=== PATIENT | male | born 1965 | race Caucasian/White ===

== ENCOUNTER 2017-12-13 07:12 | Emergency (ER) | payer MEDICAID ==
[~2017-12-13] VITALS: Ht 177.8 cm; Wt 85.0 kg
[~2017-12-13 07:12] MED LIST: DEPAKOTE; dilantin
[2017-12-13] MEDS ORDERED: LEVETIRACETAM 500MG PREMIX 100 ML IV ONE (08:00)
[2017-12-13 08:33] LABS: BASOPHILS % 0.6 % (0.0-2.0); EOSINOPHILS % 0.9 % (0.0-5.0); HEMATOCRIT. 43.4 % (42.0-52.0); HEMOGLOBIN. 14.7 g/dL (14.0-18.0); LYMPHOCYTES % 10.2 % (20.0-50.0); MEAN CORPUSCULAR HEMOGLOBIN 30.3 pg (28.0-32.0); MEAN CORPUSCULAR VOLUME 89.5 fL (80.0-94.0); MONOCYTES % 7.9 % (2.0-8.0); NEUTROPHILS % 80.4 % (40.0-76.0); PLATELET 287 x1000/uL (130-400); RED BLOOD CELL COUNT 4.85 mill/uL (4.7-6.1); RED CELL DISTRIBUTION WIDTH 14.1 % (11.6-14.6)
[2017-12-13] MEDS ORDERED: ONDANSETRON HCL 4MG/2ML VIAL IV ONE (09:00)
[2017-12-13 09:09] LABS: CHLORIDE 110 mEq/L (98-107)
[2017-12-13 13:22] VITALS: BP 136/69
== END 2017-12-13 13:40 | disposition home or self-care (01) ==
LOC: ER 07:12
DX: R56.9 Unspecified convulsions (principal)
CPT/HCPCS: 36415; 80053; 85025; 96365; 96375; 99284; J1953; J2405

== ENCOUNTER 2018-01-25 06:30 | Emergency (ER) | payer MEDICAID ==
[~2018-01-25] VITALS: Ht 188 cm; Wt 90.9 kg
[2018-01-25] MEDS ORDERED: SODIUM CHLORIDE 0.9% 1,000 ML IV ONE (06:48)
[2018-01-25] MEDS ORDERED: LORAZEPAM 2MG/ML CPJ IV ONE (07:00)
[2018-01-25 07:24] LABS: BASOPHILS % 1.1 % (0.0-2.0); EOSINOPHILS % 3.7 % (0.0-5.0); HEMATOCRIT. 41.2 % (42.0-52.0); LYMPHOCYTES % 32.6 % (20.0-50.0); MEAN CORPUSCULAR HEMOGLOBIN 30.7 pg (28.0-32.0); MEAN PLATELET VOLUME 7.5 fl (7.4-10.4); MONOCYTES % 10.1 % (2.0-8.0); NEUTROPHILS % 52.5 % (40.0-76.0); PLATELET 328 x1000/uL (130-400); RED BLOOD CELL COUNT 4.58 mill/uL (4.7-6.1); RED CELL DISTRIBUTION WIDTH 13.6 % (11.6-14.6)
[2018-01-25 07:31] LABS: CHLORIDE 111 mEq/L (98-107)
[2018-01-25 07:34] LABS: ETHANOL BLOOD < 10 mg/dL
[2018-01-25] MEDS ORDERED: VALPROIC ACID 250MG CAPSULE PO ONE (08:00)
[2018-01-25 08:54] VITALS: BP 125/89
== END 2018-01-25 08:59 | disposition left against medical advice (07) ==
LOC: ER 06:30
DX: G40.909 Epilepsy, unspecified, not intractable, without status epilepticus (principal); R03.0 Elevated blood-pressure reading, without diagnosis of hypertension
CPT/HCPCS: 36415; 80053; 80165; 82962; 84484; 85025; 93005; 96374; 99285; G0482; J2060; J7030

== ENCOUNTER 2019-07-09 02:05 | Emergency (ER) | payer MEDICAID ==
[~2019-07-09] VITALS: Ht 188 cm; Wt 95.0 kg
[2019-07-09 03:05] LABS: BASOPHILS % 1.2 % (0.0-2.0); EOSINOPHILS % 2.5 % (0.0-5.0); HEMATOCRIT. 41.6 % (42.0-52.0); HEMOGLOBIN. 14.3 g/dL (14.0-18.0); LYMPHOCYTES % 36.3 % (20.0-50.0); MEAN CORPUSCULAR VOLUME 87.3 fL (80.0-94.0); MEAN PLATELET VOLUME 7.5 fl (7.4-10.4); PLATELET 305 x1000/uL (130-400); RED BLOOD CELL COUNT 4.76 mill/uL (4.7-6.1); RED CELL DISTRIBUTION WIDTH 13.2 % (11.6-14.6)
[2019-07-09 03:09] LABS: CHLORIDE 110 mEq/L (98-107)
[2019-07-09 03:15] LABS: ETHANOL BLOOD < 10 mg/dL
[2019-07-09] MEDS ORDERED: PHENYTOIN SODIUM EXTENDED 100MG CAPSULE PO NR (04:30)
[2019-07-09 04:41] VITALS: BP 128/82
[2019-07-09 04:42] LABS: CLARITY URINE CLEAR (CLEAR); COLOR URINE YELLOW (YELLOW); KETONES URINE NEGATIVE (NEGATIVE); LEUKOCYTE ESTERASE URINE NEGATIVE (NEGATIVE); NITRITE URINE NEGATIVE (NEGATIVE); OCCULT BLOOD URINE NEGATIVE (NEGATIVE); PROTEIN URINE TRACE (NEGATIVE); SPECIFIC GRAVITY URINE 1.016 (1.005-1.030); UROBILINOGEN URINE 0.2 E.U./dL (0.2-1.0)
[2019-07-09 05:01] LABS: *AMPHETAMINES SCREEN URINE NEGATIVE (NEGATIVE); *BARBITURATES SCREEN URINE NEGATIVE (NEGATIVE); *BENZODIAZEPINES SCREEN URINE NEGATIVE (NEGATIVE); *COCAINE SCREEN URINE NEGATIVE (NEGATIVE); METHADONE URINE SCREEN NEGATIVE (NEGATIVE); OPIATES URINE SCREEN NEGATIVE (NEGATIVE); PHENCYCLIDINE URINE SCREEN NEGATIVE (NEGATIVE)
[2019-07-09 05:02] LABS: CANNABINOID URINE SCREEN PRESUMTIVE POSITIVE (NEGATIVE)
[2019-07-09] MEDS ORDERED: LORAZEPAM 2MG/ML CPJ ONE (05:10)
[2019-07-09] MEDS ORDERED: LORAZEPAM 2MG/ML CPJ IV ONE (05:15)
[2019-07-09] MEDS ORDERED: DIVA500T3 MT (22:39)
[2019-07-09] MEDS ORDERED: LEVE1000 MT (22:39)
== END 2019-07-09 04:54 | disposition home or self-care (01) ==
LOC: ER 02:05
DX: G40.909 Epilepsy, unspecified, not intractable, without status epilepticus (principal); R89.2 Abnormal level of other drugs, medicaments and biological substances in specimens from other organs, systems and tissues; R03.0 Elevated blood-pressure reading, without diagnosis of hypertension; K14.6 Glossodynia; F12.90 Cannabis use, unspecified, uncomplicated; Z98.890 Other specified postprocedural states
CPT/HCPCS: 36415; 80053; 80185; 80305; 80320; 81003; 82962; 85025; 99283; J2060; G0480

== ENCOUNTER 2021-03-16 02:53 | Inpatient (IN) | payer MEDICAID ==
[~2021-03-16] VITALS: Ht 188 cm; Wt 100.0 kg
[~2021-03-16 02:53] MED LIST changes: -DEPAKOTE; +DIVA500T3 MT; +LEVE1000 MT; -dilantin
[2021-03-16 04:31] LABS: BASOPHILS % 0.5 % (0.0-2.0); EOSINOPHILS % 1.2 % (0.0-5.0); HEMATOCRIT. 42.2 % (42.0-52.0); HEMOGLOBIN. 14.2 g/dL (14.0-18.0); LYMPHOCYTES % 13.5 % (20.0-50.0); MEAN CORPUSCULAR HEMOGLOBIN 29.7 pg (28.0-32.0); MEAN CORPUSCULAR VOLUME 88.5 fL (80.0-94.0); MEAN PLATELET VOLUME 6.8 fl (7.4-10.4); MONOCYTES % 10.4 % (2.0-8.0); NEUTROPHILS % 74.4 % (40.0-76.0); PLATELET 438 x1000/uL (130-400); RED BLOOD CELL COUNT 4.77 mill/uL (4.7-6.1); RED CELL DISTRIBUTION WIDTH 13.8 % (11.6-14.6)
[2021-03-16 04:40] LABS: CHLORIDE 110 mEq/L (98-107)
[2021-03-16 04:44] LABS: CLARITY URINE CLEAR (CLEAR); COLOR URINE YELLOW (YELLOW); KETONES URINE NEGATIVE (NEGATIVE); LEUKOCYTE ESTERASE URINE NEGATIVE (NEGATIVE); NITRITE URINE NEGATIVE (NEGATIVE); OCCULT BLOOD URINE TRACE (NEGATIVE); PH URINE 5.5 (4.5-8.0); PROTEIN URINE 1+ (NEGATIVE); SPECIFIC GRAVITY URINE 1.019 (1.005-1.030); UROBILINOGEN URINE 0.2 E.U./dL (0.2-1.0)
[2021-03-16 04:44] LABS: ETHANOL BLOOD < 10 mg/dL
[2021-03-16 05:20] LABS: *AMPHETAMINES SCREEN URINE NEGATIVE (NEGATIVE); *BARBITURATES SCREEN URINE NEGATIVE (NEGATIVE); *BENZODIAZEPINES SCREEN URINE NEGATIVE (NEGATIVE); *COCAINE SCREEN URINE NEGATIVE (NEGATIVE); CANNABINOID URINE SCREEN PRESUMTIVE POSITIVE (NEGATIVE)
[2021-03-16 05:21] LABS: METHADONE URINE SCREEN NEGATIVE (NEGATIVE); OPIATES URINE SCREEN NEGATIVE (NEGATIVE); PHENCYCLIDINE URINE SCREEN NEGATIVE (NEGATIVE)
[2021-03-16] MEDS ORDERED: AZIT250T12 MT (06:08)
[2021-03-16] MEDS ORDERED: LORAZEPAM 2MG/ML CPJ IV ONE (06:15)
[2021-03-16] MEDS ORDERED: LEVETIRACETAM 500MG PREMIX 100 ML IV ONE (06:15)
[2021-03-16] MEDS ORDERED: DIVALPROEX SODIUM 500MG DR TABLET PO SCH (10:00)
[2021-03-16] MEDS ORDERED: ONDANSETRON HCL 4MG/2ML INJ IV PRN (10:00)
[2021-03-16] MEDS ORDERED: LORAZEPAM 2MG/ML CPJ IV PRN (10:00)
[2021-03-16] MEDS ORDERED: ACETAMINOPHEN 325MG TABLET PO PRN (10:00)
[2021-03-16 10:44] VITALS: BP 132/86
[2021-03-16] MEDS ORDERED: LEVETIRACETAM 500MG TABLET PO SCH (21:00)
== END 2021-03-16 10:50 | disposition left against medical advice (07) | DRG 53 ==
LOC: ER 02:53 → MICUSO 06:37
PROVIDERS: ADMIT Internal Medicine; ATTEND Internal Medicine
DX: G40.89 Other seizures (principal); F10.10 Alcohol abuse, uncomplicated; Z20.822 Contact with and (suspected) exposure to COVID-19; Z53.29 Procedure and treatment not carried out because of patient's decision for other reasons; Z79.899 Other long term (current) drug therapy; J40 Bronchitis, not specified as acute or chronic
CPT/HCPCS: 36415; 71045; 80053; 80305; 80320; 81003; 85025; 87426; 93005; 99285; J1953; J2060; G0480

== ENCOUNTER 2021-08-13 08:49 | Emergency (ER) | payer MEDICAID ==
[~2021-08-13] VITALS: Ht 188 cm; Wt 98.0 kg
[~2021-08-13 08:49] MED LIST changes: +AZIT250T12 MT
[2021-08-13] MEDS ORDERED: SODIUM CHLORIDE 0.9% 1,000 ML IV ONE (09:15)
[2021-08-13 09:53] LABS: BASOPHILS % 0.7 % (0.0-2.0); HEMATOCRIT. 47.6 % (42.0-52.0); HEMOGLOBIN. 16.3 g/dL (14.0-18.0); MEAN CORPUSCULAR VOLUME 87.7 fL (80.0-94.0); MEAN PLATELET VOLUME 7.7 fl (7.4-10.4); NEUTROPHILS % 58.3 % (40.0-76.0); PLATELET 348 x1000/uL (130-400); RED BLOOD CELL COUNT 5.43 mill/uL (4.7-6.1); RED CELL DISTRIBUTION WIDTH 13.5 % (11.6-14.6)
[2021-08-13 10:00] LABS: CHLORIDE 109 mEq/L (98-107)
[2021-08-13] MEDS ORDERED: IOHEXOL-300 100 ML BOTTLE ONE (14:04)
[2021-08-13] MEDS ORDERED: AMOX-424 MT (14:38)
[2021-08-13 14:42] LABS: CLARITY URINE CLEAR (CLEAR); COLOR URINE YELLOW (YELLOW); KETONES URINE NEGATIVE (NEGATIVE); LEUKOCYTE ESTERASE URINE NEGATIVE (NEGATIVE); NITRITE URINE NEGATIVE (NEGATIVE); OCCULT BLOOD URINE NEGATIVE (NEGATIVE); PROTEIN URINE NEGATIVE (NEGATIVE); SPECIFIC GRAVITY URINE 1.058 (1.005-1.030); UROBILINOGEN URINE 0.2 E.U./dL (0.2-1.0)
[2021-08-13 15:00] VITALS: BP 158/106
== END 2021-08-13 15:00 | disposition home or self-care (01) ==
LOC: ER 10:44
DX: N28.89 Other specified disorders of kidney and ureter (principal); Z86.59 Personal history of other mental and behavioral disorders; Z98.890 Other specified postprocedural states
CPT/HCPCS: 36415; 74177; 80053; 81003; 83690; 85025; 96360; 99285; J7030; Q9967; Z7610

== ENCOUNTER 2022-07-24 01:36 | Emergency (ER) | payer MEDICAID ==
[~2022-07-24] VITALS: Ht 172.7 cm; Wt 70.0 kg
[~2022-07-24 01:36] MED LIST changes: +AMOX-424 MT
[2022-07-24] MEDS ORDERED: LEVETIRACETAM 500MG TABLET PO ONE (02:00)
[2022-07-24] MEDS ORDERED: DIVALPROEX SODIUM 250MG ER TABLET PO ONE (02:00)
[2022-07-24] MEDS ORDERED: IBUPROFEN 400MG TABLET PO ONE (02:15)
[2022-07-24 02:22] LABS: HEMATOCRIT. 47.3 % (42.0-52.0); HEMOGLOBIN. 15.6 g/dL (14.0-18.0); LYMPHOCYTES % 31.5 % (20.0-50.0); MEAN CORPUSCULAR HEMOGLOBIN 30.3 pg (28.0-32.0); MEAN CORPUSCULAR VOLUME 92.1 fL (80.0-94.0); MEAN PLATELET VOLUME 8.3 fl (7.4-10.4); MONOCYTES % 11.2 % (2.0-8.0); NEUTROPHILS % 53.3 % (40.0-76.0); PLATELET 339 x1000/uL (130-400); RED BLOOD CELL COUNT 5.14 mill/uL (4.7-6.1); RED CELL DISTRIBUTION WIDTH 13.9 % (11.6-14.6)
[2022-07-24 02:27] LABS: CLARITY URINE CLEAR (CLEAR); COLOR URINE YELLOW (YELLOW); KETONES URINE NEGATIVE (NEGATIVE); LEUKOCYTE ESTERASE URINE NEGATIVE (NEGATIVE); NITRITE URINE NEGATIVE (NEGATIVE); OCCULT BLOOD URINE TRACE (NEGATIVE); PH URINE 5.5 (4.5-8.0); PROTEIN URINE TRACE (NEGATIVE); SPECIFIC GRAVITY URINE 1.014 (1.005-1.030); UROBILINOGEN URINE 0.2 E.U./dL (0.2-1.0)
[2022-07-24 02:40] LABS: CHLORIDE 110 mEq/L (98-107)
[2022-07-24 04:50] VITALS: BP 120/71
== END 2022-07-24 04:55 | disposition home or self-care (01) ==
LOC: ER 01:36
DX: G40.909 Epilepsy, unspecified, not intractable, without status epilepticus (principal); S00.512A Abrasion of oral cavity, initial encounter; X58.XXXA Exposure to other specified factors, initial encounter; Y93.89 Activity, other specified; Y92.89 Other specified places as the place of occurrence of the external cause
CPT/HCPCS: 36415; 80053; 81003; 85025; 93005; 99284; Z7610

== ENCOUNTER 2023-03-04 03:57 | Emergency (ER) | payer MEDICAID ==
[~2023-03-04] VITALS: Ht 188 cm; Wt 100.0 kg
[2023-03-04 04:03] VITALS: O2SAT 95
[2023-03-04 06:39] VITALS: BP 125/86; PULSE 97; RESP 19; TEMP 97.6
== END 2023-03-04 06:40 | disposition home or self-care (01) ==
LOC: ER 03:57
DX: R56.9 Unspecified convulsions (principal); Z98.890 Other specified postprocedural states
CPT/HCPCS: 82962; 99283

== ENCOUNTER 2024-10-12 03:19 | Emergency (ER) | payer MEDICAID ==
[~2024-10-12] VITALS: Ht 193 cm; Wt 108.0 kg
[2024-10-12 03:24] VITALS: O2SAT 100
[2024-10-12] MEDS ORDERED: LORAZEPAM 2MG/ML UD SYRINGE IV NR (03:45)
[2024-10-12] MEDS ORDERED: LORAZEPAM 2MG/ML INJ IV ONE (03:45)
[2024-10-12] MEDS: LEVETIRACETAM 1000MG PREMIX 100 ML IV ONE (04:21)
[2024-10-12 04:42] LABS: BASOPHILS % 0.7 % (0.0-2.0); EOSINOPHILS % 1.8 % (0.0-5.0); HEMATOCRIT. 46.5 % (42.0-52.0); HEMOGLOBIN. 15.4 g/dL (14.0-18.0); LYMPHOCYTES % 13.6 % (20.0-50.0); MEAN CORPUSCULAR HEMOGLOBIN 30.1 pg (28.0-32.0); MEAN CORPUSCULAR HGB CONC 33.1 g/dL (31.0-37.0); MEAN PLATELET VOLUME 7.1 fl (7.4-10.4); MONOCYTES % 9.3 % (2.0-8.0); NEUTROPHILS % 74.6 % (40.0-76.0); PLATELET 285 x1000/uL (130-400); RED BLOOD CELL COUNT 5.11 mill/uL (4.7-6.1); RED CELL DISTRIBUTION WIDTH 14.2 % (11.6-14.6); WHITE BLOOD COUNT 11.7 x1000/uL (4.5-11.0)
[2024-10-12 04:43] LABS: CHLORIDE 111 mEq/L (98-107); POTASSIUM 4.3 mEq/L (3.5-5.1); SODIUM 143 mEq/L (136-145)
[2024-10-12 04:44] LABS: CARBON DIOXIDE 22 mEq/L (21-32)
[2024-10-12 04:45] LABS: CALCIUM 8.9 mg/dL (8.7-10.4)
[2024-10-12 04:49] LABS: CREATININE 0.9 mg/dL (0.6-1.3); GLUCOSE 106 mg/dL (70-105); UREA NITROGEN BLOOD 17 mg/dL (9-23)
[2024-10-12 05:30] VITALS: BP 136/82; PULSE 84; RESP 16; TEMP 36.8; O2SAT 96
== END 2024-10-12 06:03 | disposition home or self-care (01) ==
LOC: ER 03:19
DX: R56.9 Unspecified convulsions (principal); F17.200 Nicotine dependence, unspecified, uncomplicated; F12.90 Cannabis use, unspecified, uncomplicated; Z79.899 Other long term (current) drug therapy; Z98.890 Other specified postprocedural states
CPT/HCPCS: 99284; 96365; 80048; 85025; 36415; J1953; J2060